=== PATIENT | male | born 1970 | race Caucasian/White ===

== ENCOUNTER 2016-07-03 20:19 | Emergency (ER) | payer SELFPAY ==
[2016-07-03 20:31] VITALS: TEMP 97.7
--- NOTE | 2016-07-03 21:18 | C.PDOC ---
History Of Present Illness 46 y/o male presents to the ED with complains of right parasternal discomfort for the past few days. Pain is digitally and positionally reproducible. Pt denies SOB, fever, vomiting, or any other complaints. Time Seen by Provider: 07/03/16 21:08 Chief Complaint (Nursing): Chest Pain History Per: Patient History/Exam Limitations: no limitations Onset/Duration Of Symptoms: Days Current Symptoms Are (Timing): Still Present Severity: Mild Quality: "Pain" Exacerbating Factors: Movement Alleviating Factors: None Recent travel outside of the [place]: No Past Medical History Reviewed: Historical Data, Nursing Documentation, Vital Signs Vital Signs: Last Vital Signs Temp 97.7 F 07/03/16 20:27 Pulse 74 07/03/16 21:28 Resp 16 07/03/16 21:28 BP 132/75 07/03/16 21:28 Pulse Ox 98 07/03/16 21:28 - Medical History PMH: Bronchitis Family History: States: Unknown Family Hx - Social History Hx Tobacco Use: Yes Hx Alcohol Use: No Hx Substance Use: No - Immunization History Hx Tetanus Toxoid Vaccination: No Hx Influenza Vaccination: No Hx Pneumococcal Vaccination: No Review Of Systems Except As Marked, All Systems Reviewed And Found Negative. Constitutional: Negative for: Fever Cardiovascular: Positive for: Other (right parasternal discomfort) Respiratory: Negative for: Shortness of Breath Gastrointestinal: Negative for: Vomiting Physical Exam - Physical Exam Appears: Non-toxic, No Acute Distress Skin: Warm, Dry, No Rash Head: Atraumatic, Normacephalic Neck: Normal ROM, Supple Chest: Symmetrical, Tenderness (right lower parasternal border) Cardiovascular: Rhythm Regular, No Murmur Respiratory: Normal Breath Sounds, No Rales, No Rhonchi, No Wheezing Gastrointestinal/Abdominal: Soft, No Tenderness Extremity: Bilateral: Atraumatic Neurological/Psych: Oriented x3 ED Course And Treatment ECG: Interpreted By Me ECG Rhythm: Sinus Rhythm ECG Interpretation: Normal Rate From EC (BPM) O2 Sat by Pulse Oximetry: 99 (on room air) Pulse Ox Interpretation: Normal Medical Decision Making Medical Decision Making: R parasternal costochondritis Disposition Doctor Will See Patient In The: Office Counseled Patient/Family Regarding: Studies Performed, Diagnosis - Disposition Referrals: [facility] at [facility] [Outside] Disposition: HOME/ ROUTINE Disposition Time: 21:18 Condition: GOOD Additional Instructions: bolsa de hielo 1/2 hora por hora, nada caliente Ibuprofeno 600 mg cada 6 horas joshua necessario Sigue 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 Instructions: Costochondritis (ED) Print Language: RWANDAN - Clinical Impression Clinical Impression: Chest discomfort - Scribe Statement The provider has reviewed the documentation as recorded by the Scribe Aidan Arredondo Provider Attestation: All medical record entries made by the Justinibe were at my direction and personally dictated by me. I have reviewed the chart and agree that the record accurately reflects my personal performance of the history, physical exam, medical decision making, and the department course for this patient. I have also personally directed, reviewed, and agree with the discharge instructions and disposition.
[2016-07-03 21:29] VITALS: BP 132/75; PULSE 74; RESP 16
[2016-07-03 21:53] VITALS: O2SAT 99
--- NOTE | 2016-07-21 14:43 | CARD ---
APPROVED REPORT EKG Measurement Heart [id number] <Conclusion> Sinus bradycardia Otherwise normal ECG
== END 2016-07-03 21:28 | disposition home or self-care (01) ==
LOC: C.ER 20:19
DX: R07.89 Other chest pain (principal)

== ENCOUNTER 2016-11-26 07:24 | Emergency (ER) | payer OTHER ==
[2016-11-26 07:31] VITALS: RESP 16; O2SAT 100
[2016-11-26] MEDS ORDERED: Lidocaine 5% Patch TD STA (07:48)
[2016-11-26] MEDS ORDERED: Lidocaine 5% Patch TD ONE (07:53)
--- NOTE | 2016-11-26 07:54 | C.PDOC ---
History Of Present Illness 46 y/o male c/o left lower non-radiating back pain on waking this morning, worse with movement. no hx trauma, though pt reports increased physical activity this past weekend. no numbness or tingling. no cp or sob, denies urinary complaints. no saddle anesthesia. pt took diclofenac with no relief. no fever or chills. Time Seen by Provider: 11/26/16 07:48 Chief Complaint (Nursing): Back Pain History/Exam Limitations: no limitations Onset/Duration Of Symptoms: Hrs (3) Current Symptoms Are (Timing): Still Present Quality Of Discomfort: "Pain" Severity: Moderate Pain Scale Rating Of: 6 Previous Symptoms: None Associated Symptoms: denies: Incontinence Exacerbating Factor(s): Movement Recent travel outside of the [place]: No Past Medical History Reviewed: Historical Data, Nursing Documentation, Vital Signs Vital Signs: Last Vital Signs Temp 97.5 F L 11/26/16 10:51 Pulse 62 11/26/16 10:51 Resp 16 11/26/16 10:51 BP 109/68 11/26/16 10:51 Pulse Ox 100 11/27/16 18:55 - Medical History PMH: Bronchitis Family History: States: Unknown Family Hx - Social History Hx Tobacco Use: Yes Hx Alcohol Use: Yes Hx Substance Use: No - Immunization History Hx Tetanus Toxoid Vaccination: No Hx Influenza Vaccination: No Hx Pneumococcal Vaccination: No Review Of Systems Constitutional: Negative for: Fever, Chills Cardiovascular: Negative for: Chest Pain Respiratory: Negative for: Shortness of Breath Genitourinary: Negative for: Dysuria, Frequency, Hematuria Musculoskeletal: Positive for: Back Pain Neurological: Negative for: Weakness, Numbness Physical Exam - Physical Exam Appears: Non-toxic, No Acute Distress Skin: Warm, Dry Head: Atraumatic, Normacephalic Neck: Normal ROM, Supple Chest: Symmetrical, No Deformity, No Tenderness Cardiovascular: Rhythm Regular, No Murmur Respiratory: Normal Breath Sounds, No Wheezing Gastrointestinal/Abdominal: Bowel Sounds, Soft, No Tenderness Back: Normal Inspection, No CVA Tenderness, No Vertebral Tenderness, Paraspinal Tenderness (left lumbar area) Extremity: No Tenderness, No Pedal Edema, No Calf Tenderness Neurological/Psych: Oriented x3, Normal Speech, Normal Cognition, Normal Motor, Normal Sensation ED Course And Treatment - Laboratory Results Result Diagrams: 11/26/16 09:23 11/26/16 09:23 O2 Sat by Pulse Oximetry: 100 Medical Decision Making Medical Decision Making: left low back pain on waking; tender to palp in left lumbar area, will give analgesics, check ua. pt found ot have hematuria, sent to stone protocol ct; 1.3 mm stone with mild hydro seen in left uvj; will d'/c pt with strainer, gu f/u, pain control. Disposition Counseled Patient/Family Regarding: Studies Performed, Diagnosis, Need For Followup, Rx Given - Disposition Referrals: Taylor Renteria MD [Staff Provider] - [facility] at [facility] [Outside] Disposition: HOME/ ROUTINE Disposition Time: 11:23 Condition: IMPROVED Additional Instructions: Por favor, tess crissy agua; esto ayudar a pasar la santy del rin. Por favor , estirar toda la orina y llevar la santy cuando se realiza el seguimiento con el urlogo. Segura glndula de la prstata est ligeramente agrandada; por favor muestre el informe de la exploracin del aida al urlogo cuando usted va as que puede ser evaluado. Por favor, siga en la clnica mdica; naif plaquetas (c lulas sanguneas que ayudan a coagular segura corey) son un poco bajas y usted necesita para obtener esta comprobado en la clnica. Barry ibuprofeno (no diclofenac) joshua prescrbied para el dolor; Vuelva al ER para cualquier empeoramiento de los sntomas. Prescriptions: Ibuprofen [Motrin] 600 mg PO TID #30 tab Instructions: Kidney Stones (ED), Renal Colic (ED), How to Strain Your Urine ( ED), Thrombocytopenia (ED) Forms: Gen Discharge Inst Turkmen, [facility] (Chinese), [facility] (Turkmen), Work Excuse Print Language: SERBIAN - Clinical Impression Clinical Impression: Kidney stone on left side, Thrombocytopenia
[2016-11-26 08:46] LABS: URINE BILIRUBIN NEGATIVE (NEGATIVE); URINE COLOR AMBER (YELLOW); URINE GLUCOSE (UA) Normal (Normal); URINE KETONE NEGATIVE (NEGATIVE)
[2016-11-26 08:47] LABS: URINE BLOOD 3+ (NEGATIVE); URINE LEUKOCYTE ESTERASE NEGATIVE Leu/uL (Negative); URINE PROTEIN 1+ mg/dL (NEGATIVE)
[2016-11-26 08:48] LABS: RBC URINE 162 /hpf (0-3); WBC URINE 2 /hpf (0-5)
[2016-11-26] MEDS ORDERED: Sodium Chloride 0.9% 1,000 ML IV ONE (09:04)
[2016-11-26] MEDS ORDERED: Sodium Chloride 0.9% 1,000 ML ONE (09:15)
[2016-11-26 09:30] LABS: BASO # 0.1 K/uL (0.0-0.2); BASO % 0.6 % (0.0-2.0); EOS # 0.3 K/uL (0.0-0.7); EOS % 2.7 % (0.0-4.0); HEMATOCRIT 48.7 % (35.0-51.0); LYMPH # 1.3 K/uL (1.0-4.3); LYMPH % 13.7 % (20.0-40.0); MEAN CELL VOLUME 92.8 fL (80.0-94.0); MEAN CORPUSCULAR HEMOGLOBIN 30.9 pg (27.0-31.0); MEAN CORPUSCULAR HGB CONC 33.4 g/dL (33.0-37.0); MEAN PLATELET VOLUME 11.6 fL (7.2-11.7); MONO # 0.6 K/uL (0.0-0.8); MONO % 5.9 % (0.0-10.0); RED CELL DISTRIBUTION WIDTH 13.3 % (11.5-14.5); WHITE BLOOD COUNT 9.6 K/uL (4.8-10.8)
[2016-11-26 09:38] LABS: CHLORIDE 98 mmol/L (98-107); POTASSIUM 4.4 mmol/L (3.6-5.2); SODIUM 139 mmol/L (132-148)
[2016-11-26 09:41] LABS: BLOOD UREA NITROGEN 22 mg/dL (9-20); CALCIUM 9.6 mg/dl (8.6-10.4); CARBON DIOXIDE 30 mmol/L (22-30); GFR AFRICAN-AMERICAN > 60; GLUCOSE,RANDOM 106 mg/dL (75-110)
--- NOTE | 2016-11-26 10:33 | CT ---
PROCEDURE: CT abdomen and pelvis dated 11/18/2016 HISTORY: Left flank pain and hematura COMPARISON: None. TECHNIQUE: Contiguous axial images of the abdomen and pelvis oral or intravenous contrast material. . Coronal and Sagittal reformats generated. Radiation dose: Total exam DLP = 423.1 mGy-cm. This CT exam was performed using one or more of the following dose reduction techniques: Automated exposure control, adjustment of the mA and/or kV according to patient size, and/or use of iterative reconstruction technique. FINDINGS: LOWER THORAX: Small hiatal hernia. No focal infiltrate effusion or basilar pneumothorax. Heart size within range of normal. No significant pericardial effusion. CT of are LIVER: Liver exhibits normal size measuring approximately 17 cm in cc dimension. No obvious hepatic mass or collection seen on this noncontrast exam. GALLBLADDER AND BILE DUCTS: The gallbladder is physiologically distended. No evidence of intraluminal gallbladder calculi. PANCREAS: Visualized portions of the pancreas appear grossly unremarkable without obvious mass collection calcification or significant ductal dilatation. SPLEEN: Unremarkable. No splenomegaly. ADRENALS: No adrenal masses. KIDNEYS AND URETERS: The kidneys demonstrate relatively symmetric size. There is very mild left-sided hydronephrosis with an apparent very tiny approximately 1.3 mm calcification seen in the regional left UVJ felt to represent a tiny left UVJ stone. Clinic correlation recommended. BLADDER: The urinary bladder is incompletely distended which may account for slight thick-walled appearance. Muscular hypertrophy presumably contributes. Possibility of a cystitis not completely excluded. REPRODUCTIVE: Prostate gland measures approximately 4.4 cm in transverse dimension. Findings are likely due to BPH however correlation with PSA recommended. Punctate prostatic calcification present. APPENDIX: Normal-appearing appendix best seen on coronal image number [id number]. No periappendiceal inflammatory changes. BOWEL: Evaluation of the bowel is limited due to the lack of oral contrast. The stomach appears incompletely distended which presumably accounts slight thick-walled appearance. Possibility of a cystitis not excluded. Visualized loops of small bowel exhibit normal contour and caliber. No evidence of acute mechanical small bowel obstruction. Moderate amount of stool is seen within the descending and proximal sigmoid colon suggesting mild fecal retention. No definitive mural wall thickening. PERITONEUM: Unremarkable. No fluid collection. No free air. Small fat containing umbilical hernia. LYMPH NODES: Multiple small nonspecific retroperitoneal lymph nodes are present. VASCULATURE: Unremarkable. No aortic aneurysm. BONES: Minor multilevel degenerative spondylosis of the lower thoracic and lumbar spine. There is mild dextroscoliosis possibly due to splinting - side bending secondary to a left renal calculus OTHER FINDINGS: None. IMPRESSION: There is a tiny approximately 1.3 mm calculus left UVJ region with mild left-sided hydronephrosis. . Urinary bladder wall slightly thickened likely due to incomplete distention and probably some muscular hypertrophy. The possibility of cystitis not excluded. Prominent prostate gland likely due to BPH however correlation with PSA recommended. See above discussion for additional details and findings.
[2016-11-26 10:53] VITALS: BP 109/68; PULSE 62; TEMP 97.5
== END 2016-11-26 11:47 | disposition home or self-care (01) ==
LOC: C.ER 07:24
DX: N20.0 Calculus of kidney (principal); D69.6 Thrombocytopenia, unspecified
CPT/HCPCS: 74176; 80048; 81001; 85025; 96360; 99284; J7040

== ENCOUNTER 2018-05-30 12:47 | Emergency (ER) | payer OTHER ==
[2018-05-30 12:47] VITALS: BMI 29.4
[2018-05-30] MEDS ORDERED: Lidocaine 5% Patch TD STA (13:21)
[2018-05-30] MEDS ORDERED: Lidocaine 5% Patch TD ONE (13:34)
--- NOTE | 2018-05-30 13:34 | C.PDOC ---
History Of Present Illness 48 y/o male with hx back pain,. kidney stones. presents with bilateral right more than left lower back pain since after moving a heavy dumpster at work on Saturday. pt has had similar pain in the past, takes 400 mg motrin at a times with mild relief, worse with movement. pt denies bladder or bowel incontinence and numbess or tinglinge. no saddle anesthesia. Time Seen by Provider: 05/30/18 13:02 Chief Complaint (Nursing): Back Pain Past Medical History Vital Signs: Last Vital Signs Temp 98.3 F 05/30/18 12:57 Pulse 63 05/30/18 12:57 Resp 20 05/30/18 12:57 BP 122/83 05/30/18 12:57 Pulse Ox 100 05/30/18 12:57 - Medical History PMH: Bronchitis, Kidney Stones Family History: States: Unknown Family Hx - Social History Hx Tobacco Use: Yes Hx Alcohol Use: Yes Hx Substance Use: No - Immunization History Hx Tetanus Toxoid Vaccination: No Hx Influenza Vaccination: No Hx Pneumococcal Vaccination: No ED Course And Treatment O2 Sat by Pulse Oximetry: 100 Medical Decision Making Medical Decision Making: pt with right lower back pain, worse with movement. no hematuria an us. (hx kidney stones). pt with dec pain s/p toradol and muscle relaxant. d.c home Disposition Counseled Patient/Family Regarding: Diagnosis, Need For Followup, Rx Given - Disposition Referrals: [facility] at [facility] [Outside] Disposition: HOME/ ROUTINE Disposition Time: 14:24 Condition: IMPROVED Additional Instructions: Pleae take ibuprofen 600 mg (3 over the counter tablets) at a time by mouth every 6 hours,. take with food.l Take patch off back in 12 hours. Take muscle relaxant every 8 hours if at home and not operating machinery or working or driving. Follow up in medical clinic next week. Avoid heavy lifting. Prescriptions: Cyclobenzaprine [Cyclobenzaprine HCl] 10 mg PO Q8 #9 tab Instructions: Low Back Pain (DC) Forms: General Discharge Instructions, [facility] (Filipino), Work Excuse - Clinical Impression Clinical Impression: Lumbar sprain
[2018-05-30 14:05] LABS: SQUAMOUS EPITHIAL < 1 /hpf (0-5); URINE BILIRUBIN NEGATIVE (NEGATIVE); URINE BLOOD NEGATIVE (NEGATIVE); URINE CLARITY Hazy (Clear); URINE COLOR Yellow (YELLOW); URINE GLUCOSE (UA) NORMAL (Normal); URINE LEUKOCYTE ESTERASE NEG Leu/uL (Negative); URINE PROTEIN NEGATIVE (NEGATIVE); URINE UROBILINOGEN NORMAL mg/dL (0.2-1.0)
[2018-05-30 14:44] VITALS: BP 105/67; PULSE 60; RESP 16; TEMP 98.4
[2018-05-30 23:24] VITALS: O2SAT 100
== END 2018-05-30 14:37 | disposition home or self-care (01) ==
LOC: C.ER 12:47
DX: S33.5XXA Sprain of ligaments of lumbar spine, initial encounter (principal); X50.0XXA Overexertion from strenuous movement or load, initial encounter; Y99.0 Civilian activity done for income or pay; Z72.0 Tobacco use
CPT/HCPCS: 81001; 96372; 99284; J1885